=== PATIENT | male | born 1960 | race Caucasian/White ===

== ENCOUNTER 2018-06-11 18:05 | Emergency (ER) | payer BC, SELFPAY ==
[2018-06-11] VITALS (8 sets, daily range): BP systolic 138–178; BP diastolic 86–100; PULSE 68–76; RESP 17–23; TEMP 36.7; O2SAT 94–99; BMI 32.7
--- NOTE | 2018-06-11 18:26 | ED.VISSUMM ---
- ER Visit Summary Date of Service: 06/11/18 Chief Complaint: Fall History of Present Illness: The patient is a 58 M who presents after a fall that occurred today. Patient states he slipped on ice and landed on his right shoulder. Patient states his right shoulder is dislocated. Patient states the pain radiates to his hand. Patient admits to some tingling in his hand. Patient denies any head injury or loss of consciousness. Patient denies any other injuries. Patient states his pain is sharp and is worse with any movement. Physical Examination: Vital signs are stable. Patient is afebrile. There is tenderness over the right shoulder. Range of motion was limited in all motions of the right shoulder secondary to pain. Radial pulses are equal bilaterally. Capillary refill was less than 2 seconds in all digits. Sensation was intact to light touch in the radial, median, ulnar, and axillary areas. Test Results: X-rays of the right shoulder were obtained. There is a dislocation of the glenohumeral joint. Emergency Department Course and Treatment: Patient was placed on a monitor. Patient was given a dose of morphine here. Patient was given a repeat dose of morphine. Patient was given propofol. The right shoulder was reduced with traction countertraction. Patient had no episodes of desaturation during the procedure. Patient tolerated the procedure well. Repeat x-ray shows the dislocation was reduced. There are no fractures. Patient was placed in a sling and swath. Patient was given a prescription for [place]. Patient was instructed to ice and elevate the right shoulder. Patient was instructed to follow-up with his primary care physician in 5-7 days. Patient understood and was agreeable with the plan. All questions were answered. Disposition: Discharged home Impression: Right shoulder dislocation This note was generated with [employer] dictation software. It may contain incorrect words, spelling, and punctuation that were not noted in review of the chart prior to signing ED Disposition - Plan for ED Patient: Disposition: Home or Assisted Living Chief Complaint: Upper Extremity Injury Diagnosis: Dislocation of shoulder, right, closed Instructions: ED Dislocation Shoulder Redu Prescriptions: Hydrocodone Bitart/Apap 5-325 [[place] 5MG-325MG] 1 tab PO Q6H PRN PRN 3 Days #10 tab PRN Reason: Pain Referrals: Gary Rubalcava MD [NON-STAFF] -
--- NOTE | 2018-06-11 18:32 | RAD_ITS ---
STUDY: X-RAY - RIGHT SHOULDER REASON FOR EXAM: Male, 58 years old. Pain TECHNIQUE: 2 view(s) of the shoulder. COMPARISON: None. FINDINGS: Anterior subcoracoid dislocation of the humeral head without evidence for associated fracture Normal acromioclavicular joint. Normal acromion. Normal humeral head and visualized proximal humerus. The soft tissue structures are unremarkable. Normal visualized pulmonary apex. RAD/Shoulder min 2 Views IMPRESSION: Subcoracoid dislocation of the right shoulder. Electronically Signed: Tobi De Los Santos MD at 20:07 EST , Service support ,
[2018-06-11] MEDS: Ondansetron 4 MG/2 ML Vial IV (18:37)
[2018-06-11] MEDS: Morphine 4 MG/ML Syringe IV ×2 (18:37→19:16)
--- NOTE | 2018-06-11 19:31 | RAD_ITS ---
STUDY: X-RAY - RIGHT SHOULDER REASON FOR EXAM: Male, 58 years old. Post reduction TECHNIQUE: 2 view(s) of the shoulder. COMPARISON: June 11, 2018 6:40 PM FINDINGS: There is been a reduction of the dislocation of the right shoulder. There is degenerative change in the acromioclavicular joint. A fracture line is not visualized. RAD/Shoulder min 2 Views IMPRESSION: Reduction of the dislocation seen on earlier study. Electronically Signed: Mandie Vegas MD at 20:20 EST Tel , Service support ,
[2018-06-11] MEDS: Propofol 200 MG/20 ML Vial IV BOLUS (19:32)
--- OUTSIDE RECORDS SUMMARY | 2018-08-13 23:28 | XMS RPT_ITS ---
:1960 Author Organization OH[facility] Care Team Providers Name Role Phone DAVIS KING III Referring Unavailable DAVIS KING III Attending Unavailable Yosi Mcmullen Attending Unavailable John King Primary Care Unavailable PROBLEMS PROBLEMS DATE TYPE CONDITION / CODE ATTENDING STATUS SOURCE 06/12/2018 Unknown S43.014A - Yosi Mcmullen Active [place] [facility] dislocation of Hospital right humerus, Repository initial encounter / S43.014A(ICD-10) 12/07/2017 Active Gout, unspecified NA Active [facility] / M10.9(ICD-10) [facility] [place] Repository 12/07/2017 Active Hyperlipidemia, NA Active [facility] unspecified / [facility] [place] E78.5(ICD-10) Repository 06/11/2013 Active Personal history NA Active [facility] of other [facility] [place] endocrine, Repository nutritional and metabolic disease / Z86.39(ICD-10) 11/28/2010 Active Decreased white NA Active [facility] blood cell count, [facility] [place] unspecified / Repository D72.819(ICD-10) 04/06/2010 Active Essential NA Active [facility] (primary) [place] hypertension / Repository I10(ICD-10) PROCEDURES PROCEDURES No Procedure Records FoundRESULTS RESULTS EMERGENCY DEPARTMENT Observed: 06/12/2018 Status: F Source: [place] SUMMARY 12:47 AM [facility] [place] [facility] Medical Records Department [address] [place] [address] Emergency Department Summary 06/11/18 1826 MR#: [id number] Acct: [id number] Name: VLADISLAV DEVI Rep #: [id number] : 1960 58 From: Yosi Mcmullen DO PCP: John King MD Status: DEP ER - ER Visit Summary Date of Service: 06/11/18 Chief Complaint: Fall History of Present Illness: The patient is a 58 M who presents after a fall that occurred today. Patient states he slipped on ice and landed on his right shoulder. Patient states his right shoulder is dislocated. Patient states the pain radiates to his hand. Patient admits to some tingling in his hand. Patient denies any head injury or loss of consciousness. Patient denies any other injuries. Patient states his pain is sharp and is worse with any movement. Physical Examination: Vital signs are stable. Patient is afebrile. There is tenderness over the right shoulder. Range of motion was limited in all motions of the right shoulder secondary to pain. Radial pulses are equal bilaterally. Capillary refill was less than 2 seconds in all digits. Sensation was intact to light touch in the radial, median, ulnar, and axillary areas. Test Results: X-rays of the right shoulder were obtained. There is a dislocation of the glenohumeral joint. Emergency Department Course and Treatment: Patient was placed on a monitor. Patient was given a dose of morphine here. Patient was given a repeat dose of morphine. Patient was given propofol. The right shoulder was reduced with traction countertraction. Patient had no episodes of desaturation during the procedure. Patient tolerated the procedure well. Repeat x-ray shows the dislocation was reduced. There are no fractures. Patient was placed in a sling and swath. Patient was given a prescription for [place]. Patient was instructed to ice and elevate the right shoulder. Patient was instructed to follow-up with his primary care physician in 5-7 days. Patient understood and was agreeable with the plan. All questions were answered. Disposition: Discharged home Impression: Right shoulder dislocation This note was generated with Tasted Menu dictation software. It may contain incorrect words, spelling, and punctuation that were not noted in review of the chart prior to signing ED Disposition - Plan for ED Patient: Disposition: Home or Assisted Living Chief Complaint: Upper Extremity Injury Diagnosis: Dislocation of shoulder, right, closed Instructions: ED Dislocation Shoulder Redu Prescriptions: Hydrocodone Bitart/Apap 5-325 [[place] 5MG-325MG] 1 tab PO Q6H PRN PRN 3 Days #10 tab PRN Reason: Pain Referrals: Gary Rubalcava MD [NON-STAFF] - What to do if you have Problems For any increased pain, shortness of breath, bleeding, nausea or vomiting, chest pain, or any unexpected problems, contact your Primary Care Provider. Call [facility] ([phone]) or report to the closest Emergency Room. Call 911 if necessary. 06/12/18 0047 <Electronically signed by Yosi Mcmullen DO> Date Yosi Mcmullen DO Cosigner Signature (If Indicated): Date CC: John King MD SHOULDER MIN 2 VIEWS Observed: 06/11/2018 Status: F Source: [place] 7:32 PM [facility] [place] [facility] Imaging Services [address] [place] [id number] Shoulder min 2 Views MR#: [id number] Acct: [id number] Name: VLADISLAV DEVI Rep #: [id number] : 1960 M 58 From: Mandie Vegas MD PCP: John King MD Status: REG ER Study: Shoulder min 2 Views Date of Exam: 06/11/18 Exam# [id number] Ordering Dr: Elsy Villatoro MD STUDY: X-RAY - RIGHT SHOULDER REASON FOR EXAM: Male, 58 years old. Post reduction TECHNIQUE: 2 view(s) of the shoulder. COMPARISON: June 11, 2018 6:40 PM FINDINGS: There is been a reduction of the dislocation of the right shoulder. There is degenerative change in the acromioclavicular joint. A fracture line is not visualized. RAD/Shoulder min 2 Views IMPRESSION: Reduction of the dislocation seen on earlier study. Electronically Signed: Mandie Vegas MD at 20:20 EST Tel , Service support , CC: Elsy Villatoro MD; John King MD Manager Security: Signed SHOULDER MIN 2 VIEWS Observed: 06/11/2018 Status: F Source: [place] 6:26 PM [facility] [place] [facility] Imaging Services [address] [place] [address] Shoulder min 2 Views MR#: [id number] Acct: [id number] Name: VLADISLAV DEVI Rep #: [id number] : 1960 M 58 From: Tobi De Los Santos MD PCP: John King MD Status: REG ER Study: Shoulder min 2 Views Date of Exam: 06/11/18 Exam# [id number] Ordering Dr: Yosi Mcmullen DO STUDY: X-RAY - RIGHT SHOULDER REASON FOR EXAM: Male, 58 years old. Pain TECHNIQUE: 2 view(s) of the shoulder. COMPARISON: None. FINDINGS: Anterior subcoracoid dislocation of the humeral head without evidence for associated fracture Normal acromioclavicular joint. Normal acromion. Normal humeral head and visualized proximal humerus. The soft tissue structures are unremarkable. Normal visualized pulmonary apex. RAD/Shoulder min 2 Views IMPRESSION: Subcoracoid dislocation of the right shoulder. Electronically Signed: Tobi De Los Santos MD at 20:07 EST , Service support , CC: Yosi Mcmullen DO; John King MD Manager Security: Signed PROGRESS Observed: 04/16/2018 Status: COMPLETED Source: [place] 11:43 AM [facility] [place] HNO ID: [id number] Author: Monique Cui Service: (none) Author Type: Fast Food Cashier Type: Progress Notes Filed: 04/16/2018 11:44 AM Note Text: Removed patient from the Care Gap list of Diabetes. Monique Cui MA CNPTOUTREACH Observed: 04/16/2018 Status: COMPLETED Source: [place] 12:00 AM [facility] REPOSITORY Patient Outreach (FAMPWS) VLADISLAV DEVI ([id number]) 1960 M Date Time Provider Department 04/16/18 [facility] During your visit today, we recorded the following information about you: Monique Cui MA 04/16/2018 11:44 AM Signed Removed patient from the Care Gap list of Diabetes. Monique Cui MA Allergies As of Date: 04/16/2018 (No Known Allergies) Date Reviewed: 01/17/2018 Reviewed by: Saida Lau Ma - Fully Assessed Prescriptions as of 04/16/2018 Sig: LISINOPRIL 10 MG TABLET Take 1 tablet by mouth once d* * ASPIRIN 81 MG TABLET Take 81 mg by mouth once ej* Problem List As Of Date 04/16/2018 Noted Resolved OBESITY [E66.9] INVALID FOR*11/17/2010 Routine physical examination [Z00.00] INVALID FOR*07/05/2016 Hyperlipidemia LDL goal <100 [E78.5] INVALID FOR* History of diabetes mellitus, type II [Z86.39] INVALID FOR*01/17/2018 Essential hypertension, benign [I10] Fatty liver [K76.0] INVALID FOR*07/11/2010 Special screening for malignant neoplasms, colo*INVALID FOR*07/05/2016 History of hepatitis C [Z86.19] INVALID FOR* More... Leukopenia [D72.819] INVALID FOR*01/17/2018 Hematuria [R31.9] 08/09/2016 More... Renal calculi [N20.0] 08/09/2016 BPH (benign prostatic hyperplasia) [N40.0] INVALID FOR* Family history of colon cancer [Z80.0] INVALID FOR* Gout involving toe of left foot [M10.9] INVALID FOR* Encounter Status:Closed by MONIQUE CUI on 04/16/18 PROGRESS Observed: 01/17/2018 Status: COMPLETED Source: [place] 2:11 PM [facility] REPOSITORY HNO ID: [id number] Author: Davis King III Service: (none) Author Type: Physician Type: Progress Notes Filed: 01/17/2018 2:51 PM Note Text: SUBJECTIVE: Chief Complaint: Vladislav Devi is a 57 year old male who presents for comprehensive problem evaluation. New concerns today include 1. hypertension--pt has been taking lisinopril 5mg qday with home bp 122/68 2. reg cycling 3. R ear lesion , recurrent : Exercises regularly Yes and Bicycle Prostate cancer screening up to date No Colon cancer screening is up to date Yes Last colonoscopy was done 2015 Cholesterol screening up to date Yes Current Outpatient Prescriptions on File Prior to Visit: lisinopril (ZESTRIL, PRINIVIL) 10 mg tablet Take 1 tablet by mouth once daily. Aspirin 81 mg ORAL Tab Take 81 mg by mouth once daily. No current facility-administered medications on file prior to visit. PAST MEDICAL HISTORY Diagnosis Date - Benign neoplasm of colon - Gout - Hematuria benign - History of hepatitis C INF/ribivirin 2010 - Hypertension - Insomnia, psychophysiological related to stress - Leukopenia 11/28/2010 PAST SURGICAL HISTORY Procedure Laterality Date - COLONOSCOP W/ OR W/O [facility] SPEC 06/13/2010 polypectomy, repeat 2016 - COLONOSCOP W/ OR W/O [facility] SPEC 07/26/15 Colonoscopy - LIVER BIOPSY 2010 - VASECTOMY FAMILY HISTORY Problem Relation Age of Onset - Diabetes Father - other (lung cancer) Mother - other (lung cancer) Brother smoker Social History Marital status: Spouse name: Brooke Years of education: Number of children: 2 Occupational History Occupation Employer Comment intermodal owner operator truck driver [employer] Social History Main Topics Smoking status: Never Smoker Smokeless tobacco: Never Used Alcohol use: No Drug use: No Sexual activity: Yes Partners with: Female control/protection: Vasectomy Social History Narrative 2 daughters. Does his own drag racing. Immunization History Administered Date(s) Administered Hepatitis A vaccine 08/05/2010 Hepatitis B Adult 08/05/2010 09/14/2010 01/27/2011 Influenza Vaccine, Split-Non Spec 03/08/2010 03/16/2011 Pneumovax 03/08/2010 Tetanus Diphtheria Booster (Age >7) Pres Free 08/09/2016 ACTIVE PROBLEM LIST Hyperlipidemia Ldl Goal <100 History of Diabetes Mellitus, Type II Essential Hypertension, Benign History of Hepatitis C Leukopenia Bph (Benign Prostatic Hyperplasia) Family History of Colon Cancer Gout Involving Toe of Left Foot REVIEW OF SYSTEMS General: Denies fever, chills, night sweats, or changes in weight. Dermatologic: see HPI Eyes: ENT: Respiratory: Denies any cough, dyspnea, or wheezing. Cardiovascular: Denies any chest pain with exertion or at rest, palpitations, syncope, or edema. Gastrointestinal: Denies any nausea, vomiting, abdominal pain, heartburn, changes in bowel habit, Denies any rectal bleeding. Genitourinary: Denies Denies problems with urinary stream., Denies dysuria, frequency, urgency, incontinence, erectile dysfunction, hematuria and nocturia. Musculoskeletal: Denies any joint swelling, crepitus, joint pain, or loss of range of motion., Denies back pain. Neurologic: Denies any headaches, tremors, dizziness, vertigo, memory loss, confusion., Denies weakness, numbness or tingling. Psychiatric: Denies any sleeping problems, history of abuse, marital discord., Denies any anxiety or depression. Hematologic/Lymphatic/Immunologic: Denies anemia, bruising, bleeding abnormalities. Endocrine: Denies any heat or cold intolerance, polyuria or polydipsia. OBJECTIVE: PHYSICAL EXAMINATION: BP 122/88 Pulse 79 Temp 36.6 ?C (97.9 ?F) (Right Tympanic) Resp 16 Ht 181 cm (5' 11.25) Wt 105.7 kg (233 lb) SpO2 97% BMI 32.27 kg/m? GENERAL APPEARANCE Well appearing, alert, in no acute distress, well-hydrated, well nourished. SKIN: superficial ulcer R pinna HEAD: No significant findings. NECK: Supple, no lymphadenopathy, normal thyroid, no carotid bruits and no JVD BACK: Back symmetric, Normal curvature, No CVAT. LUNGS: normal pulmonary exam and clear to auscultation and percussion HEART: Normal PMI, Regular rate and rhythm, Normal heart sounds, S1 and S2 and No murmurs. BREASTS: ABDOMEN: Soft, Flat, Non-tender, No palpable masses and No hepatosplenomegaly. EXTREMTIES: extremities normal, no deformities, no skin discoloration, no edema, normal pulses bilaterally. NEURO: Awake, alert and oriented x 3, Normal gait, No involuntary motions., muscle tone normal, muscle strength normal GENITALIA: Exam deferred RECTAL: Anus normal, no anorectal masses, Prostate normal size, consistency, no nodules, and no tenderness, 2/4 spongy Lab Results for VLADISLAV DEVI ( ) as of 01/17/2018 14:30 Ref. Range 01/08/2018 08:15 Sodium Latest Ref Range: 136 - 144 mmol/L 139 Potassium Latest Ref Range: 3.7 - 5.1 mmol/L 4.9 Chloride Latest Ref Range: 97 - 105 mmol/L 100 CO2 Latest Ref Range: 22 - 30 mmol/L 26 BUN Latest Ref Range: 9 - 24 mg/dL 20 Creatinine Latest Ref Range: 0.73 - 1.22 mg/dL 1.19 Glucose Latest Ref Range: 74 - 99 mg/dL 113 (H) Protein, Total Latest Ref Range: 6.3 - 8.0 g/dL 7.1 Calcium Latest Ref Range: 8.5 - 10.2 mg/dL 9.1 Albumin Latest Ref Range: 3.9 - 4.9 g/dL 4.2 Bilirubin, Total Latest Ref Range: 0.2 - 1.3 mg/dL 0.8 Alkaline Phosphatase Latest Ref Range: 36 - 108 U/L 69 ALT Latest Ref Range: 10 - 54 U/L 22 AST Latest Ref Range: 14 - 40 U/L 21 Anion Gap Latest Ref Range: 9 - 18 mmol/L 13 Uric Acid Latest Ref Range: 4.0 - 8.1 mg/dL 6.7 eGFR- Unknown >60 eGFR-All Other Races Latest Units: . >60 Cholesterol, Total Latest Ref Range: <200 mg/dL 189 Triglyceride Latest Ref Range: <150 mg/dL 133 Fasting Time Latest Units: hrs 12 HDL Cholesterol Latest Ref Range: >39 mg/dL 42 LDL Cholesterol Latest Ref Range: <100 mg/dL 120 (H) VLDL Cholesterol Latest Ref Range: <30 mg/dL 27 TC:HDL Ratio Latest Ref Range: <5.10 4.50 LDL:HDL Ratio Latest Ref Range: <2.54 2.86 (H) Non HDL Cholesterol Latest Ref Range: <130 mg/dL 147 (H) Hematocrit Latest Ref Range: 39.0 - 51.0 % 50.2 Hemoglobin A1C Latest Ref Range: 4.3 - 5.6 % 5.5 Estimated Average Glucose Latest Units: mg/dL 111 WBC Latest Ref Range: 3.70 - 11.00 k/uL 8.24 RBC Latest Ref Range: 4.20 - 6.00 m/uL 5.31 Hemoglobin Latest Ref Range: 13.0 - 17.0 g/dL 16.6 Platelet Count Latest Ref Range: 150 - 400 k/uL 223 MCV Latest Ref Range: 80.0 - 100.0 fL 94.5 MCH Latest Ref Range: 26.0 - 34.0 pG 31.3 MCHC Latest Ref Range: 30.5 - 36.0 g/dL 33.1 MPV Latest Ref Range: 9.0 - 12.7 fL 11.8 RDW-CV Latest Ref Range: 11.5 - 15.0 % 12.5 Neut% Latest Units: % 62.1 Abs Neut (ANC) Latest Ref Range: 1.45 - 7.50 k/uL 5.09 Lymph% Latest Units: % 23.5 Abs Lymph Latest Ref Range: 1.00 - 4.00 k/uL 1.94 Banner% Latest Units: % 12.6 Abs Banner Latest Ref Range: <0.87 k/uL 1.04 (H) Eosin% Latest Units: % 1.2 Abs Eosin Latest Ref Range: <0.46 k/uL 0.10 Baso% Latest Units: % 0.6 Abs Baso Latest Ref Range: <0.11 k/uL 0.05 Nucleated Reds Latest Ref Range: 0 /100 WBC 0.0 Absolute nRBC Latest Ref Range: <0.01 k/uL <0.01 Diff Type Unknown Auto Diff ASSESSMENT: probable skin cancer R pinna hypertension--at goal PLAN: healthy diet and regular exercise refer to surgery to treat right ear lesion continue lisinopril 5mg daily SIGRID Castaneda MD, III MD CNOV Observed: 01/17/2018 Status: COMPLETED Source: [place] 2:00 PM [facility] REPOSITORY Office Visit (FAMPWS) VLADISLAV DEVI ([id number]) 1960 M Date Time Provider Department 01/17/18 2:00 PM DAVIS KING III During your visit today, we recorded the following information about you: Temperature Pulse Respiration Blood pressure 97.9 degrees 79/minute 16/minute 122/88 Weight Height 105.7 kg 1.81 m Davis King III MD 01/17/2018 2:51 PM Signed SUBJECTIVE: Chief Complaint: Vladislav Devi is a 57 year old male who presents for comprehensive problem evaluation. New concerns today include 1. hypertension--pt has been taking lisinopril 5mg qday with home bp 122/68 2. reg cycling 3. R ear lesion , recurrent : Exercises regularly Yes and Bicycle Prostate cancer screening up to date No Colon cancer screening is up to date Yes Last colonoscopy was done 2015 Cholesterol screening up to date Yes Current Outpatient Prescriptions on File Prior to Visit: lisinopril (ZESTRIL, PRINIVIL) 10 mg tablet Take 1 tablet by mouth once daily. Aspirin 81 mg ORAL Tab Take 81 mg by mouth once daily. No current facility-administered medications on file prior to visit. PAST MEDICAL HISTORY Diagnosis Date - Benign neoplasm of colon - Gout - Hematuria benign - History of hepatitis C INF/ribivirin 2010 - Hypertension - Insomnia, psychophysiological related to stress - Leukopenia 11/28/2010 PAST SURGICAL HISTORY Procedure Laterality Date - COLONOSCOP W/ OR W/O [facility] SPEC 06/13/2010 polypectomy, repeat 2016 - COLONOSCOP W/ OR W/O [facility] SPEC 07/26/15 Colonoscopy - LIVER BIOPSY 2010 - VASECTOMY FAMILY HISTORY Problem Relation Age of Onset - Diabetes Father - other (lung cancer) Mother - other (lung cancer) Brother smoker Social History Marital status: Spouse name: Brooke Years of education: Number of children: 2 Occupational History Occupation Employer Comment intermodal owner operator truck driver [employer] Social History Main Topics Smoking status: Never Smoker Smokeless tobacco: Never Used Alcohol use: No Drug use: No Sexual activity: Yes Partners with: Female control/protection: Vasectomy Social History Narrative 2 daughters. Does his own drag racing. Immunization History Administered Date(s) Administered Hepatitis A vaccine 08/05/2010 Hepatitis B Adult 08/05/2010 09/14/2010 01/27/2011 Influenza Vaccine, Split-Non Spec 03/08/2010 03/16/2011 Pneumovax 03/08/2010 Tetanus Diphtheria Booster (Age >7) Pres Free 08/09/2016 ACTIVE PROBLEM LIST Hyperlipidemia Ldl Goal <100 History of Diabetes Mellitus, Type II Essential Hypertension, Benign History of Hepatitis C Leukopenia Bph (Benign Prostatic Hyperplasia) Family History of Colon Cancer Gout Involving Toe of Left Foot REVIEW OF SYSTEMS General: Denies fever, chills, night sweats, or changes in weight. Dermatologic: see HPI Eyes: ENT: Respiratory: Denies any cough, dyspnea, or wheezing. Cardiovascular: Denies any chest pain with exertion or at rest, palpitations, syncope, or edema. Gastrointestinal: Denies any nausea, vomiting, abdominal pain, heartburn, changes in bowel habit, Denies any rectal bleeding. Genitourinary: Denies Denies problems with urinary stream., Denies dysuria, frequency, urgency, incontinence, erectile dysfunction, hematuria and nocturia. Musculoskeletal: Denies any joint swelling, crepitus, joint pain, or loss of range of motion., Denies back pain. Neurologic: Denies any headaches, tremors, dizziness, vertigo, memory loss, confusion., Denies weakness, numbness or tingling. Psychiatric: Denies any sleeping problems, history of abuse, marital discord., Denies any anxiety or depression. Hematologic/Lymphatic/Immunologic: Denies anemia, bruising, bleeding abnormalities. Endocrine: Denies any heat or cold intolerance, polyuria or polydipsia. OBJECTIVE: PHYSICAL EXAMINATION: BP 122/88 Pulse 79 Temp 36.6 ?C (97.9 ?F) (Right Tympanic) Resp 16 Ht 181 cm (5' 11.25) Wt 105.7 kg (233 lb) SpO2 97% BMI 32.27 kg/m? GENERAL APPEARANCE Well appearing, alert, in no acute distress, well-hydrated, well nourished. SKIN: superficial ulcer R pinna HEAD: No significant findings. NECK: Supple, no lymphadenopathy, normal thyroid, no carotid bruits and no JVD BACK: Back symmetric, Normal curvature, No CVAT. LUNGS: normal pulmonary exam and clear to auscultation and percussion HEART: Normal PMI, Regular rate and rhythm, Normal heart sounds, S1 and S2 and No murmurs. BREASTS: ABDOMEN: Soft, Flat, Non-tender, No palpable masses and No hepatosplenomegaly. EXTREMTIES: extremities normal, no deformities, no skin discoloration, no edema, normal pulses bilaterally. NEURO: Awake, alert and oriented x 3, Normal gait, No involuntary motions., muscle tone normal, muscle strength normal GENITALIA: Exam deferred RECTAL: Anus normal, no anorectal masses, Prostate normal size, consistency, no nodules, and no tenderness, 2/4 spongy Lab Results for VLADISLAV DEVI ( ) as of 01/17/2018 14:30 Ref. Range 01/08/2018 08:15 Sodium Latest Ref Range: 136 - 144 mmol/L 139 Potassium Latest Ref Range: 3.7 - 5.1 mmol/L 4.9 Chloride Latest Ref Range: 97 - 105 mmol/L 100 CO2 Latest Ref Range: 22 - 30 mmol/L 26 BUN Latest Ref Range: 9 - 24 mg/dL 20 Creatinine Latest Ref Range: 0.73 - 1.22 mg/dL 1.19 Glucose Latest Ref Range: 74 - 99 mg/dL 113 (H) Protein, Total Latest Ref Range: 6.3 - 8.0 g/dL 7.1 Calcium Latest Ref Range: 8.5 - 10.2 mg/dL 9.1 Albumin Latest Ref Range: 3.9 - 4.9 g/dL 4.2 Bilirubin, Total Latest Ref Range: 0.2 - 1.3 mg/dL 0.8 Alkaline Phosphatase Latest Ref Range: 36 - 108 U/L 69 ALT Latest Ref Range: 10 - 54 U/L 22 AST Latest Ref Range: 14 - 40 U/L 21 Anion Gap Latest Ref Range: 9 - 18 mmol/L 13 Uric Acid Latest Ref Range: 4.0 - 8.1 mg/dL 6.7 eGFR- Unknown >60 eGFR-All Other Races Latest Units: . >60 Cholesterol, Total Latest Ref Range: <200 mg/dL 189 Triglyceride Latest Ref Range: <150 mg/dL 133 Fasting Time Latest Units: hrs 12 HDL Cholesterol Latest Ref Range: >39 mg/dL 42 LDL Cholesterol Latest Ref Range: <100 mg/dL 120 (H) VLDL Cholesterol Latest Ref Range: <30 mg/dL 27 TC:HDL Ratio Latest Ref Range: <5.10 4.50 LDL:HDL Ratio Latest Ref Range: <2.54 2.86 (H) Non HDL Cholesterol Latest Ref Range: <130 mg/dL 147 (H) Hematocrit Latest Ref Range: 39.0 - 51.0 % 50.2 Hemoglobin A1C Latest Ref Range: 4.3 - 5.6 % 5.5 Estimated Average Glucose Latest Units: mg/dL 111 WBC Latest Ref Range: 3.70 - 11.00 k/uL 8.24 RBC Latest Ref Range: 4.20 - 6.00 m/uL 5.31 Hemoglobin Latest Ref Range: 13.0 - 17.0 g/dL 16.6 Platelet Count Latest Ref Range: 150 - 400 k/uL 223 MCV Latest Ref Range: 80.0 - 100.0 fL 94.5 MCH Latest Ref Range: 26.0 - 34.0 pG 31.3 MCHC Latest Ref Range: 30.5 - 36.0 g/dL 33.1 MPV Latest Ref Range: 9.0 - 12.7 fL 11.8 RDW-CV Latest Ref Range: 11.5 - 15.0 % 12.5 Neut% Latest Units: % 62.1 Abs Neut (ANC) Latest Ref Range: 1.45 - 7.50 k/uL 5.09 Lymph% Latest Units: % 23.5 Abs Lymph Latest Ref Range: 1.00 - 4.00 k/uL 1.94 Banner% Latest Units: % 12.6 Abs Banner Latest Ref Range: <0.87 k/uL 1.04 (H) Eosin% Latest Units: % 1.2 Abs Eosin Latest Ref Range: <0.46 k/uL 0.10 Baso% Latest Units: % 0.6 Abs Baso Latest Ref Range: <0.11 k/uL 0.05 Nucleated Reds Latest Ref Range: 0 /100 WBC 0.0 Absolute nRBC Latest Ref Range: <0.01 k/uL <0.01 Diff Type Unknown Auto Diff ASSESSMENT: probable skin cancer R pinna hypertension--at goal PLAN: healthy diet and regular exercise refer to surgery to treat right ear lesion continue lisinopril 5mg daily Davis King, III MD Davis A SIGRID King MD, III MD 01/17/2018 2:49 PM Signed PLAN: healthy diet and regular exercise refer to surgery to treat right ear lesion continue lisinopril 5mg daily Davis King III MD Referring Provider: SELF [200] Allergies As of Date: 01/17/2018 (No Known Allergies) Date Reviewed: 01/17/2018 Reviewed by: Saida Lau Ma - Fully Assessed Reason for Visit: Physical [83] Primary Visit Diagnosis:Encounter for routine adult health examination without abnormal findings [Z00.00] Other Visit Diagnoses:Hyperlipidemia LDL goal <100 [E78.5] Essential hypertension, benign [I10] Prescriptions as of 01/17/2018 Sig: LISINOPRIL 10 MG TABLET Take 1 tablet by mouth once d* * ASPIRIN 81 MG TABLET Take 81 mg by mouth once ej* Problem List As Of Date 01/17/2018 Noted Resolved OBESITY [E66.9] INVALID FOR*11/17/2010 Routine physical examination [Z00.00] INVALID FOR*07/05/2016 Hyperlipidemia LDL goal <100 [E78.5] INVALID FOR* History of diabetes mellitus, type II [Z86.39] INVALID FOR*01/17/2018 Essential hypertension, benign [I10] Fatty liver [K76.0] INVALID FOR*07/11/2010 Special screening for malignant neoplasms, colo*INVALID FOR*07/05/2016 History of hepatitis C [Z86.19] INVALID FOR* More... Leukopenia [D72.819] INVALID FOR*01/17/2018 Hematuria [R31.9] 08/09/2016 More... Renal calculi [N20.0] 08/09/2016 BPH (benign prostatic hyperplasia) [N40.0] INVALID FOR* Family history of colon cancer [Z80.0] INVALID FOR* Gout involving toe of left foot [M10.9] INVALID FOR* Other instructions from your clinician: PLAN: healthy diet and regular exercise refer to surgery to treat right ear lesion continue lisinopril 5mg daily Davis King III MD Encounter Status:Closed by DAVIS KING III, MD on 01/17/18 PROGRESS Observed: 01/08/2018 Status: COMPLETED Source: [place] 7:34 PM [facility] [place] REPOSITORY HNO ID: [id number] Author: Davis King III Service: (none) Author Type: Physician Type: Progress Notes Filed: 01/08/2018 7:34 PM Note Text: The lab results look fairly good though the LDL cholesterol is a bit high. We will discuss at the upcoming appointment next week. Davis King III, MD, FAAFP CBC AND DIFFERENTIAL Collected: 01/08/2018 Status: F Source: [place] 8:15 AM [facility] REPOSITORY TYPE CODE TESTS RESULT OUT OF REFERENCE UNITS RANGE LAB WBC 3.70-11.00 k/uL WBC 8.24 LAB RBC 4.20-6.00 m/uL RBC 5.31 LAB HGB 13.0-17.0 g/dL Hemoglobin 16.6 LAB HCT 39.0-51.0 % Hematocrit 50.2 LAB MCV 80.0-100.0 fL MCV 94.5 LAB MCH 26.0-34.0 pG MCH 31.3 LAB MCHC 30.5-36.0 g/dL MCHC 33.1 LAB RDWCV 11.5-15.0 % RDW-CV 12.5 LAB PLTCT 150-400 k/uL Platelet Count 223 LAB MPV 9.0-12.7 fL MPV 11.8 LAB ANEUT % Neut% 62.1 LAB AANEUT 1.45-7.50 k/uL Abs Neut 5.09 LAB ALYMP % Lymph% 23.5 LAB AALYMP 1.00-4.00 k/uL Abs Lymph 1.94 LAB AMONO % Banner% 12.6 LAB AAMONO <0.87 k/uL Abs Banner High 1.04 LAB AEOS % Eosin% 1.2 LAB AAEOS <0.46 k/uL Abs Eosin 0.10 LAB ABASO % Baso% 0.6 LAB AABASO <0.11 k/uL Abs Baso 0.05 LAB AUNRBC 0 /100 WBC NRBCs 0.0 LAB ABNRBC <0.01 k/uL Absolute nRBC <0.01 LAB DTYP DTYPE Auto Diff Performed By: #### CBCDIF, CMP, LIPB, URIC, HBA1C #### [facility] [address] [place] [address] COMP METABOLIC PANEL Collected: 01/08/2018 Status: F Source: [place] 8:15 AM [facility] MAIN [facility]AMPUS REPOSITORY TYPE CODE TESTS RESULT OUT OF REFERENCE UNITS RANGE LAB TP 6.3-8.0 g/dL Protein, Total 7.1 LAB ALB 3.9-4.9 g/dL Albumin 4.2 LAB CA 8.5-10.2 mg/dL Calcium, Total 9.1 LAB TBIL 0.2-1.3 mg/dL Bilirubin, Total 0.8 LAB ALKP 36-108 U/L Alkaline Phosphatase 69 LAB AST 14-40 U/L AST 21 LAB GLU 74-99 mg/dL Glucose High 113 Result Comment: The [place] Diabetes Association (ADA) provides guidance for cutoff values for fasting glucose and random glucose. The ADA defines fasting as no caloric intake for at least 8 hours. Fas ting plasma glucose results between 100 to 125 mg/dL indicate increased risk for diabetes (prediabetes). Fasting plasma glucose results greater than or equal to 126 mg/dL meet the criteria for diagnosis of diabetes. In the absence of unequivocal hyperglycemia, results should be confirmed by repeat testing. In a patient with classic symptoms of hyperglycemia or hyperglycemic crisis, random plasma glucose results greater than or equal to 200 mg/dL meet the criteria for diagnosis of diabetes. Reference: Standards of Medical Care in Diabetes 2016, [place] Diabetes Association. Diabetes Care. 2016.39(Suppl 1). LAB BUN 9-24 mg/dL BUN 20 LAB CRET 0.73-1.22 mg/dL Creatinine 1.19 LAB NA 136-144 mmol/L Sodium 139 LAB K 3.7-5.1 mmol/L Potassium 4.9 LAB CL 97-105 mmol/L Chloride 100 LAB CO2 22-30 mmol/L CO2 26 LAB AGAP 9-18 mmol/L Anion Gap 13 LAB ALT 10-54 U/L ALT 22 LAB GFRAA eGFR- Amer. >60 LAB GFRNAA . eGFR-All Other Races >60 Result Comment: eGFR (Estimated GFR) Units of measure: mL/min/1.73 meters squared eGFR is derived from the reexpressed MDRD Study equation using the following parameters: serum creatinine, age, gender and race. The creatinine assay has been calibrated to be traceable to IDMS. An eGFR <60 mL/min/1.73m2 for >3 months is consistent with chronic kidney disease. Refer to KDOQI guidelines for clinical interpretation. In patients with unstable renal function, e.g. those with acute kidney injury, the eGFR may not accurately reflect actual GFR. Performed By: #### CBCDIF, CMP, LIPB, URIC, HBA1C #### [facility] [address] [place], [place] [address] LIPID PANEL, BASIC Collected: 01/08/2018 Status: F Source: [place] 8:15 AM [facility] REPOSITORY TYPE CODE TESTS RESULT OUT OF REFERENCE UNITS RANGE LAB CHOL <200 mg/dL Cholesterol 189 Result Comment: <200 mg/dL, Desirable 200-239 mg/dL, Borderline high >239 mg/dL, High LAB TRIGLY <150 mg/dL Triglyceride 133 Result Comment: <150 mg/dL, Normal 150-199 mg/dL, Borderline high 200-499 mg/dL, High >499 mg/dL, Very high LAB HDL >39 mg/dL HDL-Cholesterol 42 Result Comment: 40-59 mg/dL, Acceptable >59 mg/dL, High: Negative risk factor for coronary heart disease <40 mg/dL, Low: Positive risk factor for coronary heart disease LAB LDL <100 mg/dL LDL-Cholesterol High 120 Result Comment: <100 mg/dL, Optimal 100-129 mg/dL, Near optimal/above optimal 130-159 mg/dL, Borderline high 160-189 mg/dL, High >189 mg/dL, Very high Secondary prevention optimal LDL Cholesterol levels are recommended to be < 70 mg/dL LAB NONHDL <130 mg/dL Non HDL High Cholesterol 147 Result Comment: <130 mg/dL, Optimal 130-159 mg/dL, Near optimal/above optimal 160-189 mg/dL, Borderline high 190-219 mg/dL, High >219 mg/dL, Very high Secondary prevention optimal non HDL Cholesterol levels are recommended to be < 100 mg/dL LAB FT hrs Fasting Time 12 LAB VLDL <30 mg/dL VLDL Cholesterol 27 LAB TCHDL <5.10 TC:HDL Ratio 4.50 LAB LDLHDL <2.54 High LDL:HDL Ratio 2.86 Result Comment: Reference: 1. National Cholesterol Education Program ATP III Guideline At-A-Glance Quick Desk Reference: National Heart, Lung, and Blood Williams. National Institutes of Health. 2001: NIH Publication No. 01-3305. 2. An International Atherosclerosis Society position paper: global recommendations for the management of dyslipidemia: executive summary, Atherosclerosis. 2014: 232(2):410-413. Performed By: #### CBCDIF, CMP, LIPB, URIC, HBA1C #### [facility] [address] [id number] URIC ACID Collected: 01/08/2018 Status: F Source: [place] 8:15 AM [facility] REPOSITORY TYPE CODE TESTS RESULT OUT OF RANGE REFERENCE UNITS LAB URIC 4.0-8.1 mg/dL Uric Acid 6.7 Performed By: #### CBCDIF, CMP, LIPB, URIC, HBA1C #### [facility] [address] [place], [place] [id number] HEMOGLOBIN A1C Collected: 01/08/2018 Status: F Source: [place] 8:15 AM [facility] REPOSITORY TYPE CODE TESTS RESULT OUT OF REFERENCE UNITS RANGE LAB HGBA1C 4.3-5.6 % Hemoglobin A1c 5.5 LAB HBA0 mg/dL Est. Average Glucose 111 Result Comment: eAG: (Estimated average glucose) is a calculated value from HgbA1c and is outbound call center representative of the average blood glucose level in the last 2-3 month period. Performed By: #### CBCDIF, CMP, LIPB, URIC, HBA1C #### [facility] [address] [place] [id number] PROGRESS Observed: 08/15/2017 Status: COMPLETED Source: [place] 6:30 AM [facility] REPOSITORY HNO ID: [id number] Author: Michael Anderson (Program Host) FREDY Conti.CAMPAIGN CONSULTANT Service: (none) Author Type: Nurse Practitioner Type: Progress Notes Filed: 08/15/2017 7:11 AM Note Text: Subjective HPI Patient presents with: Cough: x 1 week, increased last 2.5 days Sudafed otc with minimal relief. Hx of pneumonia 4x Review of Systems Constitutional: Negative for chills, fever and malaise/fatigue. HENT: Positive for congestion. Negative for ear pain and sore throat. Eyes: Negative for discharge and redness. Respiratory: Positive for cough. Negative for hemoptysis, sputum production, shortness of breath and wheezing. Gastrointestinal: Negative for abdominal pain, diarrhea, nausea and vomiting. Skin: Negative for rash. Neurological: Negative for headaches. PAST MEDICAL HISTORY Diagnosis Date - Benign neoplasm of colon - Gout - Hematuria benign - History of hepatitis C INF/ribivirin 2010 - Hypertension - Insomnia, psychophysiological related to stress - Leukopenia 11/28/2010 PAST SURGICAL HISTORY Procedure Laterality Date - COLONOSCOP W/ OR W/O [facility] SPE[facility] 06/13/2010 polypectomy, repeat 2016 - COLONOSCOP W/ OR W/O [facility] SPEC 07/26/15 Colonoscopy - LIVER BIOPSY 2010 - VASECTOMY ALLERGIES Review of patient's allergies indicates no known allergies. MEDICATIONS lisinopril (ZESTRIL, PRINIVIL) 10 mg tablet Take 1 tablet by mouth once daily. Aspirin 81 mg ORAL Tab Take 81 mg by mouth once daily. FAMILY HISTORY Problem Relation Age of Onset - Diabetes Father - lung cancer [OTHER] Mother - lung cancer [OTHER] Brother smoker Social History Substance Use Topics - Smoking status: Never Smoker - Smokeless tobacco: Never Used - Alcohol use No Objective Physical Exam Constitutional: He is well-developed, well-nourished, and in no distress. HENT: Head: Normocephalic. Right Ear: Tympanic membrane, external ear and ear canal normal. Left Ear: Tympanic membrane, external ear and ear canal normal. Nose: Rhinorrhea present. Right sinus exhibits no maxillary sinus tenderness and no frontal sinus tenderness. Left sinus exhibits no maxillary sinus tenderness and no frontal sinus tenderness. Mouth/Throat: Posterior oropharyngeal erythema (PND) present. Eyes: Conjunctivae are normal. Neck: Normal range of motion. Neck supple. Cardiovascular: Normal rate, regular rhythm and normal heart sounds. Pulmonary/Chest: Effort normal. No respiratory distress. He has no wheezes. He has rhonchi (faint scattered rhonchi in b/l lower lobes). He has no rales. Abdominal: Soft. He exhibits no distension. There is no tenderness. Lymphadenopathy: He has no cervical adenopathy. Skin: Skin is warm and dry. No rash noted. Nursing note and vitals reviewed. ASSESSMENT/PLAN: 1. Acute bronchitis, unspecified organism - ICD9: 466.0, ICD10: J20.9 -Prednisone -Zpak -Bromfed -supportive care, rest, fluids, analgesics PRN -F/u with pcp in 3-5 days or sooner if symptoms are not improving or worsening Prescription instructions reviewed with patient as applicable. Patient advised if symptoms do not improve or if symptoms worsen sooner, to contact their primary care physician. Potential red flag symptoms discussed with the patient. Reviewed appropriate action plan to take if red flag symptoms occur. Patient agreeable to treatment plan. Michael Conti APRN.CNP CNOV Observed: 08/15/2017 Status: COMPLETED Source: [place] 6:30 AM [facility] REPOSITORY Office Visit ([facility]) VLADISLAV DEVI ([id number]) 1960 M Date Time Provider Department 08/15/17 6:30 AM MICHAEL CONTI (LEARNING AND DEVELOPMENT INTERN) [facility] During your visit today, we recorded the following information about you: Temperature Pulse Respiration Blood pressure 98.2 degrees 84/minute 16/minute 122/82 Weight 105.7 kg Michael Conti APRN.CNP, APRN.CNP 08/15/2017 7:11 AM Signed Subjective HPI Patient presents with: Cough: x 1 week, increased last 2.5 days Sudafed otc with minimal relief. Hx of pneumonia 4x Review of Systems Constitutional: Negative for chills, fever and malaise/fatigue. HENT: Positive for congestion. Negative for ear pain and sore throat. Eyes: Negative for discharge and redness. Respiratory: Positive for cough. Negative for hemoptysis, sputum production, shortness of breath and wheezing. Gastrointestinal: Negative for abdominal pain, diarrhea, nausea and vomiting. Skin: Negative for rash. Neurological: Negative for headaches. PAST MEDICAL HISTORY Diagnosis Date - Benign neoplasm of colon - Gout - Hematuria benign - History of hepatitis C INF/ribivirin 2010 - Hypertension - Insomnia, psychophysiological related to stress - Leukopenia 11/28/2010 PAST SURGICAL HISTORY Procedure Laterality Date - COLONOSCOP W/ OR W/O [facility] SPEC 06/13/2010 polypectomy, repeat 2016 - COLONOSCOP W/ OR W/O [facility] SPEC 07/26/15 Colonoscopy - LIVER BIOPSY 2010 - VASECTOMY ALLERGIES Review of patient's allergies indicates no known allergies. MEDICATIONS lisinopril (ZESTRIL, PRINIVIL) 10 mg tablet Take 1 tablet by mouth once daily. Aspirin 81 mg ORAL Tab Take 81 mg by mouth once daily. FAMILY HISTORY Problem Relation Age of Onset - Diabetes Father - lung cancer [OTHER] Mother - lung cancer [OTHER] Brother smoker Social History Substance Use Topics - Smoking status: Never Smoker - Smokeless tobacco: Never Used - Alcohol use No Objective Physical Exam Constitutional: He is well-developed, well-nourished, and in no distress. HENT: Head: Normocephalic. Right Ear: Tympanic membrane, external ear and ear canal normal. Left Ear: Tympanic membrane, external ear and ear canal normal. Nose: Rhinorrhea present. Right sinus exhibits no maxillary sinus tenderness and no frontal sinus tenderness. Left sinus exhibits no maxillary sinus tenderness and no frontal sinus tenderness. Mouth/Throat: Posterior oropharyngeal erythema (PND) present. Eyes: Conjunctivae are normal. Neck: Normal range of motion. Neck supple. Cardiovascular: Normal rate, regular rhythm and normal heart sounds. Pulmonary/Chest: Effort normal. No respiratory distress. He has no wheezes. He has rhonchi (faint scattered rhonchi in b/l lower lobes). He has no rales. Abdominal: Soft. He exhibits no distension. There is no tenderness. Lymphadenopathy: He has no cervical adenopathy. Skin: Skin is warm and dry. No rash noted. Nursing note and vitals reviewed. ASSESSMENT/PLAN: 1. Acute bronchitis, unspecified organism - ICD9: 466.0, ICD10: J20.9 -Prednisone -Zpak -Bromfed -supportive care, rest, fluids, analgesics PRN -F/u with pcp in 3-5 days or sooner if symptoms are not improving or worsening Prescription instructions reviewed with patient as applicable. Patient advised if symptoms do not improve or if symptoms worsen sooner, to contact their primary care physician. Potential red flag symptoms discussed with the patient. Reviewed appropriate action plan to take if red flag symptoms occur. Patient agreeable to treatment plan. Michael Conti APRN.CAMPAIGN CONSULTANT Referring Provider: SELF [200] Allergies As of Date: 08/15/2017 (No Known Allergies) Date Reviewed: 08/15/2017 Reviewed by: Chantel Williamson Ma - Fully Assessed Reason for Visit: Cough [28] Cmt: x 1 week, increased last 2.5 days Reason For Visit History Recorded Primary Visit Diagnosis:Acute bronchitis, unspecified organism [J20.9] Order(s):predniSONE (DELTASONE) 20 mg tabletTake 2 tablets by mouth once daily for 5 days. Take daily with food.Disp: 10 tabletRfl: 0 azithromycin (ZITHROMAX Z-RENETTA) 250 mg tabletTake 2 tablets day one, then, 1 tablet daily until gone.Disp: 1 PackageRfl: 0 Zyvvgpfnubbsjxp-Kaxuicuiy-YQ (BROMFED DM) 2-30-10 mg/5 mL syrupTake 10 mL by mouth four times daily as needed for up to 7 days.Disp: 240 mLRfl: 0 Prescriptions as of 08/15/2017 Sig: LISINOPRIL 10 MG TABLET Take 1 tablet by mouth once d* * ASPIRIN 81 MG TABLET Take 81 mg by mouth once ej* PREDNISONE 20 MG TABLET Take 2 tablets by mouth once * AZITHROMYCIN 250 MG TABLET Take 2 tablets day one, then,* BROMPHENIRAMINE-PSEUDOEPHEDRI* Take 10 mL by mouth four time* Problem List As Of Date 08/15/2017 Noted Resolved OBESITY [E66.9] INVALID FOR*11/17/2010 Routine physical examination [Z00.00] INVALID FOR*07/05/2016 Mixed hyperlipidemia [E78.2] INVALID FOR*08/10/2015 History of diabetes mellitus, type II [Z86.39] INVALID FOR* Essential hypertension, benign [I10] Fatty liver [K76.0] INVALID FOR*07/11/2010 Special screening for malignant neoplasms, colo*INVALID FOR*07/05/2016 History of hepatitis C [Z86.19] INVALID FOR* More... Leukopenia [D72.819] INVALID FOR* Gout [M10.9] Hematuria [R31.9] 08/09/2016 More... Renal calculi [N20.0] 08/09/2016 BPH (benign prostatic hyperplasia) [N40.0] INVALID FOR* Family history of colon cancer [Z80.0] INVALID FOR* Prescriptions ordered this encounter Disp Refills Start End PREDNISONE 20 MG TABLET 10 t* 0 08/15/2017 08/20/2017 Route: ORAL Sig: Take 2 tablets by mouth once daily for 5 days. Take daily with food. AZITHROMYCIN 250 MG TABLET 1 Pa* 0 08/15/2017 08/20/2017 Sig: Take 2 tablets day one, then, 1 tablet daily until gone. [id number] 2* 240 * 0 08/15/2017 08/22/2017 Route: ORAL Sig: Take 10 mL by mouth four times daily as needed for up to 7 days. Disposition: Return if symptoms worsen or fail to improve. Follow-up and Disposition History Recorded Encounter Status:Closed by MICHAEL CONTI on 08/15/17 ALLERGIES ALLERGIES DATE TYPE / CODE NAME / CODE REACTION SEVERITY SOURCE 06/11/2018 Drug No Known Unknown [facility] Allergy/416 Allergies/[id number] Hospital [id number](SNOM 0388(RXNORM) Repository ED CT) Drug NO KNOWN [facility] Class/46879 ALLERGIES [facility] [place] 1003(SNOMED Repository CT) ENCOUNTERS ENCOUNTERS ADMIT/DISCHARGE ACCOUNT ADMITTING ENCOUNTER LOCATION SOURCE NUMBER CLASS 06/11/2018/06/11/19 [id number] Emergency [facility] ing:ED Repository 01/17/2018/01/19/20 [id number] Ambulatory [address] Repository 01/08/2018/01/09/20 [id number] Ambulatory [address] Repository 08/15/2017/08/16/19 [id number] Ambulatory [address] Repository PAYERS PAYERS ENCOUNTER GUARANTOR PAYER SUBSCRIBER SOURCE 06/11/2018 VLADISLAV [id number] Primary VLADISLAV BALDERAS STSHREVE, Insurance:ANTHEMPolic ROYALDOB: [facility] [address]Krq: y Number: [id number] Hospital [id number] Repository (HP) Date:[id number] [facility] [id number] [place] [id number]: 06/11/2018 [facility] Number: Effective Repository Date:2018-06-11
== END 2018-06-11 21:21 | disposition home or self-care (01) ==
PROVIDERS: Emergency Provider Emergency Medicine; Family Provider Surgery; PCP Surgery
DX: S43.004A Unspecified dislocation of right shoulder joint, initial encounter (principal); R20.2 Paresthesia of skin; W00.0XXA Fall on same level due to ice and snow, initial encounter; Y93.9 Activity, unspecified; Y92.9 Unspecified place or not applicable
CPT/HCPCS: 23650; 73030; 96374; 96375; 99284; J7040; A4216; J2405

== ENCOUNTER → 2018-07-10 12:16 | Outpatient (CLI) | payer BC, SELFPAY ==
[2018-06-11 18:07] VITALS: BMI 32.7
--- NOTE | 2018-07-10 12:30 | EKG12_ITS ---
Test Reason : PREOP Blood Pressure : / mmHG Vent. Rate : 071 BPM Atrial Rate : 071 BPM P-R Int : 148 ms QRS Dur : 096 ms QT Int : 384 ms P-R-T Axes : 022 -01 025 degrees QTc Int : 417 ms Normal sinus rhythm Abnormal ECG Confirmed by JASMIN CASTRO, SHRAVAN ([id number]), purchase request editor JUDD GRULLON ([id number]) on 07/11/2018 1:17:15 PM Referred By: Nick Banks Confirmed By:SHRAVAN CASTELLANOS MD
[2018-07-10 13:30] LABS: Hemoglobin 16.2 g/dl (13.0-16.5); Mean Corp Hgb Conc 33.1 g/gl (32-36); Mean Corpuscular Hgb 30.5 pg (27.0-32.0); Mean Corpuscular Volume 92.3 fL (80-94); Mean Platelet Vol. 11.5 fl (6.2-12.0); Platelet Count 248 K/mm3 (150-450); RBC Distribution Width SD 43.4 fl (35.1-43.9); Red Blood Count 5.31 M/mm3 (4.6-6.2); White Blood Count 8.6 K/mm3 (4.4-11.0)
[2018-07-10 13:34] LABS: Scan Indicated on CBC? Y/N NO
[2018-07-10 14:14] LABS: Anion Gap 10 (5-15); BUN 24 mg/dL (7-18); Calcium,Total 8.8 mg/dL (8.5-10.1); Chloride 104 mmol/L (98-107); Creatinine, Serum 1.09 mg/dL (0.70-1.30); EST Glomerular Filtration Rate 74 mL/min (>60); Est Glom Filt Rate - Afr Amer 89 mL/min (>60); Glucose 108 mg/dL (74-106); Sodium Level 141 mmol/L (136-145)
== END ==
PROVIDERS: Family Provider Surgery; PCP Surgery; Referring Provider Orthopaedic Surgery; Visit Provider Orthopaedic Surgery
DX: Z01.810 Encounter for preprocedural cardiovascular examination (principal); Z01.818 Encounter for other preprocedural examination
CPT/HCPCS: 36415; 80048; 85027; 93005

== ENCOUNTER → 2021-04-11 | Outpatient (CLI) | payer BC, SELFPAY | END | disposition home or self-care (01) | LOC: LABSPEC 16:02 | PROVIDERS: PCP Surgery; Referring Provider Physician Assistant Surgical; Visit Provider Physician Assistant Surgical | DX: U07.1 COVID-19 (principal) | CPT/HCPCS: 87635; U0005; U0003 ==

== ENCOUNTER 2021-04-15 10:58 | Outpatient (CLI) | payer BC, SELFPAY ==
[2021-04-15 11:07] VITALS: BP 138/94; PULSE 79; RESP 16; TEMP 36.4; O2SAT 98; BMI 31.1
[2021-04-15] MEDS: 0.9% Saline Lock 10 ML Syringe IV (11:13)
[2021-04-15 12:12] VITALS: BP 124/88; PULSE 71; RESP 16; TEMP 36.7; O2SAT 97
[2021-04-15 13:08] VITALS: BP 121/75; PULSE 71; RESP 16; TEMP 36.4; O2SAT 100
== END 2021-04-15 13:15 | disposition home or self-care (01) ==
LOC: MS3OUT 10:59 → MS3 10:59
PROVIDERS: PCP Surgery; Referring Provider Nurse Practitioner Adult Health; Visit Provider Nurse Practitioner Adult Health
DX: Z23 Encounter for immunization (principal); U07.1 COVID-19
CPT/HCPCS: J7050; M0245; Q0245; A4216

== ENCOUNTER → 2021-10-31 | Outpatient (CLI) | payer BC, SELFPAY ==
[2021-10-31 12:08] LABS: Absolute Lymphocyte Count 2.11 X10^3/uL (0.83-4.51); Absolute Neutrophil Count 4.5 X10^3/uL (2.0-7.7); Basophil# 0.05 X10^3/uL; Basophil% 0.6 % (0-1); Eosinophil# 0.14 X10^3/uL; Eosinophils% 1.8 % (0-5); Lymphocyte # 2.11 X10^3/ul (0.83-4.51); Lymphocyte % 26.6 % (19-41); Mean Corp Hgb Conc 33.3 g/dL (32-36); Mean Corpuscular Hgb 29.6 pg (27.0-32.0); Mean Corpuscular Volume 88.9 fL (80-94); Mean Platelet Vol. 11.7 fl (6.2-12.0); Monocyte# 1.05 X10^3/uL; Monocyte% 13.2 % (0-10); NRBC Flagged by Analyzer 0 % (0-5); Neutrophil # 4.54 X10^3/uL (2.7-7.7); Neutrophil % 57.3 % (47-70); Platelet Count 259 K/mm3 (150-450); RBC Distribution Width CV 12.4 % (11.6-14.6); RBC Distribution Width SD 40.4 fl (35.1-43.9); White Blood Count 7.9 K/mm3 (4.4-11.0)
[2021-10-31 12:17] LABS: Vitamin D,25 Hydroxy 18.9 ng/mL
[2021-10-31 12:23] LABS: Hemoglobin A1c 6.1 % (3.8-5.6)
[2021-10-31 12:29] LABS: AST(SGOT) 16 U/L (15-37); Alanine Aminotransfer ALT/SGPT 30 U/L (16-61); Albumin, Serum 3.5 g/dL (3.2-5.0); Alkaline Phosphatase 79 U/L (45-117); Anion Gap 6 (5-15); BUN 20 mg/dL (7-18); BUN/Creat Ratio 17.9 RATIO (10-20); Calcium,Total 8.8 mg/dL (8.5-10.1); Chloride 107 mmol/L (98-107); Cholesterol 188 mg/dL (200); Creatinine, Serum 1.12 mg/dL (0.70-1.30); EST Glomerular Filtration Rate 71 mL/min (>60); Est Glom Filt Rate - Afr Amer 86 mL/min (>60); Globulin 3.5 g/dL (2.2-4.2); Glucose 157 mg/dL (74-106); High Density Lipoprotein 39 mg/dL; PSA,Total - Annual Screen 0.84 ng/mL (0.00-4.00); Potassium 4.3 mmol/L (3.5-5.1); Sodium Level 138 mmol/L (136-145); Thyroid Stim Hormone (TSH) 1.57 uIU/mL (0.358-3.74); Triglycerides 120 mg/dL; Very Low Density Lipoprotein 24 mg/dL (5-40)
== END | disposition home or self-care (01) ==
LOC: BIMLAB 08:21
PROVIDERS: PCP Internal Medicine; Referring Provider Internal Medicine; Visit Provider Internal Medicine
DX: U07.1 COVID-19 (principal); E11.9 Type 2 diabetes mellitus without complications; I10 Essential (primary) hypertension; M10.9 Gout, unspecified; T14.8XXA Other injury of unspecified body region, initial encounter; F41.9 Anxiety disorder, unspecified; Z12.5 Encounter for screening for malignant neoplasm of prostate
CPT/HCPCS: 36415; 80053; 80061; 82306; 83036; 84153; 84443; 85025; G0103